=== PATIENT | male | born 1980 ===

== ENCOUNTER 2023-07-03 22:14 | Emergency (ER) | payer OTHER, MEDICAID, SELFPAY ==
[2023-07-03 22:19] VITALS: BP 130/68; PULSE 80; RESP 16; TEMP 36.9; O2SAT 96; BMI 23.7
--- NOTE | 2023-07-03 22:26 | DI.RAD.S_ITS ---
PROCEDURE: XR CHEST 2V INDICATIONS: COUGH X 4 DAYS TECHNIQUE: 2 views of the chest were acquired. COMPARISON: None. FINDINGS: Surgical changes and devices: None. Lungs and pleura: Lungs are clear. No pleural effusions or pneumothorax. Mediastinum: Mediastinal contours are normal. Heart size is normal. Bones and chest wall: No suspicious bony abnormalities. Soft tissues appear unremarkable. IMPRESSION: No acute cardiopulmonary abnormality is seen. Dictated by: Cristal Bach M.D. on 07/03/2023 at 23:47 Approved by: Cristal Bach M.D. on 07/03/2023 at 23:47
[2023-07-03 23:26] LABS: Adenovirus Not Detected (Not Detect); B. parapertussis Not Detected (Not Detecte); Bordetella pertussis Not Detected (Not Detect); Chlamydophila pneumoniae Not Detected (Not Detect); Coronavirus 229E Not Detected (Not Detect); Coronavirus HKU1 Not Detected (Not Detect); Coronavirus NL 63 Not Detected (Not Detect); Coronavirus OC43 Not Detected (Not Detect); Human Metapneumovirus Not Detected (Not Detect); Human Rhinovirus/Enterovirus Not Detected (Not Detect); Influenza A Not Detected (Not Detect); Influenza B Not Detected (Not Detect); Mycoplasma pneumoniae Not Detected (Not Detect); Parainfluenza Virus 1 Not Detected (Not Detect); Parainfluenza Virus 2 Not Detected (Not Detect); Parainfluenza Virus 3 Not Detected (Not Detect); Parainfluenza Virus 4 Not Detected (Not Detect); Respiratory Syncytial Virus Not Detected (Not Detect); SARS- CoV-2 Not Detected (Not Detecte)
--- NOTE | 2023-07-04 00:33 | ED_ITS ---
HPI - URI/Sore Throat General Chief Complaint: Upper Respiratory Symptoms Stated Complaint: fever/sore throat Time Seen by Provider: 07/03/23 22:26 Source: patient Mode of arrival: Ambulatory History of Present Illness HPI Narrative: 43-year-old male with no significant past medical history presents for 3-4 days of nonproductive cough, sore throat, brain fog. Family member sick at home with similar symptoms. Went to outside hospital where he was upset because they did not swab him for anything. Related Data Allergies Allergy/AdvReac Type Severity Reaction Status Date / Time lactose Allergy Verified 07/03/23 22:23 Review of Systems Review of Systems Narrative: Negative except as noted above Patient History Social History Smoking Status: Never smoker Smoking Status: Never smoker Substance Use Type: does not use Exam Initial Vital Signs Initial Vital Signs: Vital Signs Temperature 98.4 F 07/03/23 22:19 Pulse Rate 80 07/03/23 22:19 Respiratory Rate 16 07/03/23 22:19 Blood Pressure 130/68 07/03/23 22:19 Pulse Oximetry 96 07/03/23 22:19 Oxygen Delivery Method Room Air 07/03/23 22:19 Const: Awake, alert, no acute distress, nontoxic appearing Eyes: PERRL, EOMI, conjunctiva normal ENT: Atraumatic, dentition normal, mucous membranes moist Cardiac: regular rate, regular rhythm RESP: unlabored, clear bilaterally, no wheezing GI: Atraumatic, soft, nontender, nondistended, no rebound, no guarding MSK: Atraumatic, full range of motion, pulses equal Skin: Warm, Dry, intact, no rashes Neuro: AO x3, CN II-XII grossly intact, moves all extremities Psych: affect normal, mood normal, not suicidal, not homicidal Course Orders Ordered: Discontinued Medications Benzonatate (Benzonatate 100 Mg Capsule) 200 mg PO NOW ONE Stop: 07/04/23 00:35 Last Admin: 07/04/23 00:44 Dose: 200 mg Documented By: AURORA Dexamethasone (Dexamethasone 10 Mg/Ml Vial) 10 mg PO NOW ONE Stop: 07/04/23 00:35 Last Admin: 07/04/23 00:44 Dose: 10 mg Documented By: AURORA Vital Signs Vital signs: Vital Signs - 8 hr 07/03/23 22:19 Temperature 98.4 F Pulse Rate 80 Respiratory Rate 16 Blood Pressure 130/68 Pulse Oximetry 96 Oxygen Delivery Method Room Air MDM - URI/Sore Throat Differential Diagnosis Differential diagnosis: Likely upper respiratory infection, influenza and pharyngitis Lab Data Labs: Lab Results 07/03/23 Range/Units 22:30 Chlamy pneumoniae PCR Not detected (Not Detect) Adenovirus (PCR) Not detected (Not Detect) B.parapertussis DNA PCR Not detected (Not Detecte) Coronavirus OC43 (PCR) Not detected (Not Detect) Coronavirus HKU1 (PCR) Not detected (Not Detect) Coronavirus 229E (PCR) Not detected (Not Detect) SARS-CoV-2 (PCR) Not detected (Not Detecte) Coronavirus NL63 (PCR) Not detected (Not Detect) Human Metapneumovir PCR Not detected (Not Detect) Influenza Type A (PCR) Not detected (Not Detect) Influenza Type B (PCR) Not detected (Not Detect) M. pneumoniae (PCR) Not detected (Not Detect) Parainfluenza 1 (PCR) Not detected (Not Detect) Parainfluenza 2 (PCR) Not detected (Not Detect) Parainfluenza 3 (PCR) Not detected (Not Detect) Parainfluenza 4 (PCR) Not detected (Not Detect) RSV (PCR) Not detected (Not Detect) Entero/Rhino (PCR) Not detected (Not Detect) MDM Narrative Medical decision making narrative: Well-appearing patient with several days of symptoms consistent with viral illness. Patient reporting sore throat, however based on presence of cough and patient's age strep throat is highly unlikely and we will defer swabbing at this time. Two-view chest x-ray negative for acute findings. Respiratory panel negative for common viruses. Patient and his significant other at bedside were counseled of lab and imaging findings. Recommended [id number] cough and cold medications, Tessalon Perles sent to pharmacy of choice. Note for work pr ovided. Discharge Plan Departure Patient Disposition: Home Clinical Impression: Acute bronchitis Instructions: DI for Acute Bronchitis Stand Alone Forms: Patient Portal/API, Work Release Note
[2023-07-04] MEDS: BENZONATATE 100 MG CAPSULE 200 MG PO (00:44)
[2023-07-04] MEDS: DEXAMETHASONE 10 MG/ML VIAL PO (00:44)
== END 2023-07-04 01:18 | disposition home or self-care (01) ==
PROVIDERS: Emergency Provider Emergency Medicine
DX: J20.9 Acute bronchitis, unspecified (principal); Z20.822 Contact with and (suspected) exposure to COVID-19
CPT/HCPCS: 71046; 87633; 99283; J1100

== ENCOUNTER 2023-07-08 04:34 | Emergency (ER) | payer OTHER, MEDICAID, SELFPAY ==
[2023-07-08 04:52] VITALS: BP 139/65; PULSE 80; RESP 18; TEMP 36.7; O2SAT 98; BMI 23.7
--- NOTE | 2023-07-08 05:08 | ED.GENADULT ---
HPI - General Adult General Chief complaint: Upper Respiratory Symptoms Stated complaint: choking Time Seen by Provider: 07/08/23 05:08 Source: patient Mode of arrival: Ambulatory History of Present Illness HPI narrative: 43-year-old gentleman with upper respiratory symptoms, was seen on July 04 with negative viral swabs diagnosed with acute bronchitis/viral respiratory infection. 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 He is still feeling poorly, slipped late this morning and is not going to make it to work. His work has requested that he obtain an ER note to excuse his absence and he comes in for evaluation. He states symptoms continued to be similar, he is still hoarse, he is coughing, he has had poor sleep he has not vomiting, no diarrhea no abdominal pain no chest pain no palpitations. Related Data Allergies Allergy/AdvReac Type Severity Reaction Status Date / Time lactose Allergy Verified 07/03/23 22:23 Review of Systems Review of Systems Narrative: Pertinent positive and negative findings as per HPI Patient History Social History Smoking Status: Former smoker Smoking Status: Former smoker alcohol intake frequency: 0-2 drinks per day Alcohol type: wine Substance Use Type: does not use Exam Initial Vital Signs Initial Vital Signs: Vital Signs Temperature 98.1 F 07/08/23 04:52 Pulse Rate 80 07/08/23 04:52 Respiratory Rate 18 07/08/23 04:52 Blood Pressure 139/65 07/08/23 04:52 Pulse Oximetry 98 07/08/23 04:52 Oxygen Delivery Method Room Air 07/08/23 04:52 General: Fatigued, horse but in no acute distress Respiratory: Able to speak in full sentences, no obvious respiratory distress. No rhonchi or rales. Skin: No obvious rashes, warm and dry Neurologic: Grossly intact no obvious asymmetries or abnormalities Psych: appropriate insight and affect, cooperative Course Vital Signs Vital signs: Vital Signs - 8 hr 07/08/23 04:52 Temperature 98.1 F Pulse Rate 80 Respiratory Rate 18 Blood Pressure 139/65 Pulse Oximetry 98 Oxygen Delivery Method Room Air Medical Decision Making [facility] Narrative Medical decision making narrative: 43-year-old gentleman with continued upper respiratory complaints. Mild cough no evidence of acute pneumonia or secondary bacterial symptoms. Have recommended an additional 48 hours off work and work note will be given. He has Tessalon Perles available if you would like to pick them up. He is safe for discharge home Discharge Plan Departure Patient Disposition: Home Clinical Impression: Acute bronchitis Qualifiers: Bronchitis organism: unspecified organism Qualified Code(s): J20.9 - Acute bronchitis, unspecified Instructions: DI for Viral Upper Respiratory Infection -- Adult Activity Restrictions/Additional Instructions: I am sorry that you are continuing to feel unwell. Most viruses are going to take 7-10 days to recover. Your exam today does not suggest a secondary bacterial infection. Treatment is rest, fluids, cough suppression medication as desired. Work note is written I hope you feel better Stand Alone Forms: Patient Portal/API, Work Release Note
== END 2023-07-08 05:25 | disposition home or self-care (01) ==
PROVIDERS: Emergency Provider Emergency Medicine
DX: J20.9 Acute bronchitis, unspecified (principal)
CPT/HCPCS: 99281